=== PATIENT | male | born 1980 | race African-American/Black ===

== ENCOUNTER 2017-01-31 21:35 | Emergency (ER) | payer MEDICAID ==
[~2017-01-31] VITALS: Ht 170.2 cm; Wt 85.5 kg
[2017-01-31 21:36] VITALS: BP 131/86
[2017-01-31] MEDS ORDERED: KETOROLAC 30 MG/1 ML ONE (22:12)
[2017-01-31] MEDS ORDERED: DIAZEPAM 5 MG TABLET ONE (22:12)
[2017-01-31] MEDS ORDERED: KETOROLAC 30 MG/1 ML IM ONE (22:30)
[2017-01-31] MEDS ORDERED: DIAZEPAM 5 MG TABLET PO ONE (22:30)
== END 2017-01-31 23:10 | disposition home or self-care (01) ==
LOC: ED 23:00
DX: M54.2 Cervicalgia (principal); K21.9 Gastro-esophageal reflux disease without esophagitis; F41.9 Anxiety disorder, unspecified; F32.9 Major depressive disorder, single episode, unspecified; G89.29 Other chronic pain
CPT/HCPCS: 96372; 99283; J1885

== ENCOUNTER → 2018-04-28 | Outpatient (CLI) | payer BC, MEDICAID | END | disposition home or self-care (01) | LOC: CFH 07:41 | PROVIDERS: ATTEND Nurse Practitioner Family | DX: M50.123 Cervical disc disorder at C6-C7 level with radiculopathy (principal); M48.02 Spinal stenosis, cervical region; G89.29 Other chronic pain | CPT/HCPCS: 72141; 72146 ==